=== PATIENT | male | born 1935 | race Caucasian/White ===

== ENCOUNTER 2017-09-24 13:06 | Emergency (ER) | payer OTHER ==
[~2017-09-24] VITALS: Ht 172.7 cm; Wt 72.6 kg
[~2017-09-24 13:06] MED LIST: ASCO500 PO; BISA5EC PO; Coenzyme Q10200 M2 PO; FLAXSEED1000 MG PO; LOSA50 PO; MECL25 PO; METO100ER PO; METO50 PO; MULVITMIND PO; TERA5 PO; TOCO1000 PO
== END 2017-09-24 14:41 | disposition home or self-care (01) ==
LOC: ER 13:06
DX: S39.012A Strain of muscle, fascia and tendon of lower back, initial encounter (principal); I10 Essential (primary) hypertension; Z88.8 Allergy status to other drugs, medicaments and biological substances; Z79.899 Other long term (current) drug therapy; W18.30XA Fall on same level, unspecified, initial encounter
CPT/HCPCS: 72100; 99283